=== PATIENT | female | born 1970 | race Caucasian/White ===

== ENCOUNTER 2023-07-21 11:21 | Day surgery (SDC) | payer BC ==
[~2023-07-21 11:21] MED LIST: LACTATED RINGERS 1,000 ML IV SCH; LIDOCAINE 1% (10MG/ML) FOR IV START INTRADERMA PRN
[2023-07-21 12:45] VITALS: TEMP 97
[2023-07-21] MEDS ORDERED: LIDOCAINE 2% (PF) 20 MG/ML 5 ML VIAL ONE (13:04)
[2023-07-21] MEDS ORDERED: PROPOFOL 10 MG/ML 20 ML VIAL IV ONE (13:04)
--- NOTE | 2023-07-21 13:15 | P.PCN ---
Date of Procedure: 07/21/23 Procedure(s) Performed: BRIEF HISTORY: Patient is a 53-year-old, pleasant, white female scheduled for an upper endoscopy as a part of evaluation of intermittent episodes of nausea vomiting for the last 2 years duration. She has the symptoms about to 3 times a week associated with some epigastric discomfort.. PROCEDURE PERFORMED: Esophagogastroduodenoscopy biopsy. PREOPERATIVE DIAGNOSIS: Epigastric pain associated with intermittent nausea vomiting of 2 years duration. IV sedation per anesthesia. PROCEDURE: After informed consent was obtained, the patient was brought into the endoscopy unit. IV sedation was administered by Anesthesia under continuous monitoring. Initially the Olympus GIF-140 video endoscope was inserted into the mouth. Esophagus intubated without any difficulty. It was gradually advanced into the stomach and duodenum and carefully examined. The bulb and the second part of the duodenum appeared normal. Biopsies were done from the duodenum to rule out celiac disease. The scope at this time was withdrawn to the stomach, adequately insufflated with air, and upon careful examination, mucosa of the antrum, scattered erosions and biopsies were done from this area. Mucosa of the body, cardia and the fundus appeared normal. The scope was then withdrawn into the esophagus. The GE junction was located at 39 cm from the incisors. The esophagus appeared normal. Biopsies were done from the distal esophagus There were no erosions or ulcerations seen and the patient tolerated the procedure well. IMPRESSION: 1. Antral erosive gastritis. 2. No evidence of esophagitis or peptic ulcer disease. RECOMMENDATIONS: The findings of this examination were discussed with the patient as well as her family. She was advised to follow with the biopsy results. Recommend a trial of Pepcid 20 mg twice daily and follow antireflux measures..
[2023-07-21 13:58] VITALS: BP 155/78; PULSE 67; RESP 16
== END 2023-07-21 14:02 | disposition home or self-care (01) ==
LOC: ORWHC2ENDO 11:21
PROVIDERS: ATTEND Internal Medicine Gastroenterology
DX: K29.50 Unspecified chronic gastritis without bleeding (principal); K21.00 Gastro-esophageal reflux disease with esophagitis, without bleeding; F17.200 Nicotine dependence, unspecified, uncomplicated; F12.90 Cannabis use, unspecified, uncomplicated; F32.A Depression, unspecified; Z79.899 Other long term (current) drug therapy; Z91.018 Allergy to other foods
CPT/HCPCS: 88305; 43239; J2704; J2001

== ENCOUNTER → 2024-07-03 | Outpatient (CLI) | payer BC ==
[2024-07-03 13:25] VITALS: BP 145/91; PULSE 74; RESP 16; TEMP 98.2
--- NOTE | 2024-07-03 13:55 | P.SLEEP ---
History of Present Illness DATE: 07/03/2024 CONSULTATION/NEW PATIENT EVALUATION HISTORY OF PRESENT ILLNESS/SLEEP-WAKE EVALUATION: 54-year-old lady had been evaluated in the sleep center for possible obstructive sleep apnea hypopnea syndrome. SLEEP SCHEDULE: Usually sleep schedule from 10 PM to 8 AM 7 days a week. FALLING ASLEEP: Patient has difficulties with falling asleep, has TV set in bedroom. DURING SLEEP: Patient snores and according to occasionally has episodes of stop breathing during the sleep. Positive history of grinding teeth, awakenings with dry mouth, panic attacks, sweating. Patient wakes up from sleep 5 times. Positive history of sleep talking no history of hypnogogical hallucinations, sleep paralysis, or cataplexy. DURING THE DAY/WAKE STATE: In the morning patient wake up tired, has difficulties to pay attention, has problems with concentration, irritability, depression and anxiety.. [place] sleepiness scale is increased to 10. Patient take nap at 3 PM. PAST MEDICAL HISTORY: Depression. PAST SURGICAL HISTORY: None. MEDICATIONS: Reviewed, please see below. SOCIAL HISTORY: Please see below. FAMILY HISTORY: Sleep apnea, insomnia, diabetes, thyroid problems, during sleep both parents. REVIEW OF SYSTEMS: Snoring, multiple awakenings from sleep, sleepiness during the day. No fevers. No double vision. No recent chest pain. No shortness of breath. No abdominal pain. No bleeding episodes. No blood in urine. No seizure episodes. PHYSICAL EXAMINATION: GENERAL: A pleasant patient without any distress. VITAL SIGNS: Have been reviewed, please see below, weight 175 pounds, BMI 26.6. HEENT: PERRLA, EOMI. Evaluation of oropharynx showed tongue protrudes midline, low position of soft palate Mallampati 34. NECK: Supple. No JVD. Thyroid is not palpable. 14.5 inches in circumference. LUNGS: Clear to percussion and to auscultation. Good air exchange. No wheezing or rhonchi. HEART: S1, S2 regular. No murmurs, gallops or rubs. ABDOMEN: Soft and nontender. Bowel sounds are present. No organomegaly appreciated. EXTREMITIES: No clubbing or cyanosis. REGIONAL PROPERTY MANAGER: Awake, alert, and oriented x3. Cranial nerves 2 to 7 intact. There is no fasciculation or atrophy noted. No focal deficits observed. ASSESSMENT: 1. Snoring, witnessed episodes of occasional stop breathing during sleep, small oropharyngeal airspace, sleepiness with [place] Sleepiness Scale increased to 10. Obstructive sleep apnea hypopnea syndrome. 2. Depression. 3. Snoring. 4. Difficulties to initiate sleep, psychophysiological insomnia. PLAN: 1. Polysomnography for evaluation of patient's breathing during sleep. 2. Following plan after reading sleep study. 3. Preferable position during sleep on the side. 4. No driving if patient feels any sleepiness. Patient is aware of civil and criminal liability for unsafe driving. 5. Sleep hygiene with regular sleep time for at least 7.5-8 hours. 6. Watching weight. Thank you very much for referring this patient for consultation. Sincerely, Rm Fuentes MD, PhD, FAASM. Diplomat of [employer], Sleep Medicine Board by [employer] [facility] [place] cc: Cleveland Nichols DO Past Medical History Past Medical History: No Reported History Additional Past Medical History / Comment(s): bouts of throwing up at times, always feels like upset stomach History of Any Multi-Drug Resistant Organisms: None Reported Past Surgical History: No Surgical Hx Reported Additional Past Surgical History / Comment(s): colonscopy Past Anesthesia/Blood Transfusion Reactions: No Reported Reaction Past Psychological History: Depression Additional Psychological History / Comment(s): has improved Smoking Status: Current some day smoker Past Alcohol Use History: Occasional Additional Past Alcohol Use History / Comment(s): 1 pack lasts a month Past Drug Use History: Marijuana Additional Drug Use History / Comment(s): refrain 24 hours prior to procedure - Past Family History Mother Family Medical History: Pneumonia, Sleep Apnea/CPAP/BIPAP Additional Family Medical History / Comment(s): snoring, Insomnia, in Sleep Father Additional Family Medical History / Comment(s): in Sleep Sister(s) Family Medical History: Diabetes Mellitus, Thyroid Disorder Medications and Allergies Home Medications Medication Instructions Recorded Confirmed Type Guaifen/Dextromethorphan/PE 1 dose PO Q8H PRN 07/19/23 07/21/23 History [Mucinex Fast-Max Congest-Cough] FLUoxetine HCL [PROzac] 10 mg PO DAILY 07/03/24 07/03/24 History Allergies Allergy/AdvReac Type Severity Reaction Status Date / Time No Known Allergies Allergy Verified 07/19/23 09:36 Physical Exam Vitals: Vital Signs Temp Pulse Resp BP Pulse Ox 07/03/24 13:24 98.2 F 74 16 145/91 96 Intake and Output 07/02/24 07/03/24 07/03/24 22:59 06:59 14:59 Other: Weight 79.379 kg Sleep Note - Sleep Data ESS Total: 10 - Sleep Note Sleep Note: Temperature: 98.2 F Pulse Rate: 74 Respiratory Rate: 16 Blood Pressure: 145/91 SpO2: 96 Height: 5 ft 8 in Weight: 79.379 kg BMI: Neck Circumference: 14.5
== END ==
LOC: 3 N SLEEP 13:03
PROVIDERS: ATTEND Internal Medicine
DX: G47.33 Obstructive sleep apnea (adult) (pediatric) (principal); F32.A Depression, unspecified; F51.04 Psychophysiologic insomnia
CPT/HCPCS: 99211

== ENCOUNTER 2024-07-23 19:27 | Outpatient (CLI) | payer BC ==
--- NOTE | 2024-07-25 12:00 | P.PCN ---
Description of Procedure: POLYSOMNOGRAPHY REPORT PROCEDURE(S)/DATE(S): Polysomnography 07/23/2024 CLINICAL: Patient has been seen in the sleep center for evaluation of obstructive sleep apnea-hypopnea syndrome. Please see my consultation. Sleep study has been done for evaluation of patient breathing during the sleep. PROCEDURE: The standard montage for clinical polysomnography included the electroencephalogram, the electrooculogram, the mentalis surface electromyography and Lead II cardiography. The respiratory battery consisted of measurements of nasal/buccal air flow, pressure transducer measurements from nose, thoracic and/or abdominal effort and intercostal surface electromyography. Video monitoring has been done to check for any parasomnia events. Nocturnal oxyhemoglobin saturations were obtained by finger oximetry. Step-gandhi titration with positive airway pressure was utilized to control the respiratory events, if necessary. RESULTS: During the diagnostic sleep study sleep efficiency was significantly decreased to 67.7%. Latency to sleep onset was significantly prolonged to 87.0 min. Sleep architecture showed stage NI was normal 5.7%, Delta sleep was absent 0%, REM sleep was significantly decreased to 9.7%. Respiratory channel showed 0 obstructive apneas, 0 mixed apneas, 0 central apneas, 5 hypopneas with lowest oxygen level 90%. Total apnea hypopnea index was 1.2. Heart rate was in the range between 57 and 67, average 61. EMG showed 0 periodic limb movements per hour. IMPRESSIONS: 1. No significant respiratory abnormalities have been documented during the sleep study, normal oxygenation during sleep. 2. No significant periodic limb movements have been documented. 3. Long sleep latency and low sleep efficiency indicates possible insomnia versus first night adaptation response. Please see other impressions from consultation PLAN: 1. I will see patient for follow-up visit to explain results of the test and recommendations. 2. Sleep hygiene with regular time in bed for at least 7-1/2 hours.. 3. No driving if feeling sleepiness. Thank you very much for allowing me to participate in the management of your patient. Sincerely, Rm Fuentes MD, PhD, FAASM. Diplomat of [place] [employer], Sleep Medicine Board by [place] [employer] [place] cc: Cleveland Nichols DO
== END 2024-07-24 05:20 | disposition home or self-care (01) ==
LOC: 3 N SLEEP 19:27
PROVIDERS: ATTEND Internal Medicine
DX: G47.33 Obstructive sleep apnea (adult) (pediatric) (principal)
CPT/HCPCS: 95810